=== PATIENT | male | born 1965 | race Caucasian/White ===

== ENCOUNTER 2016-08-19 17:29 | Emergency (ER) | payer MEDICAID, OTHER ==
[2016-08-19 17:47] VITALS: RESP 20; O2SAT 98
[2016-08-19 17:48] VITALS: BMI 27.8
--- NOTE | 2016-08-19 18:39 | C.PDOC ---
History Of Present Illness 51 yr old male presents to the ER with complaints of intermittent anterior posterior right knee for the past few months. Patient states the pain worsen for the past 3 days after slipping on some ice. Reports has tried some Advil for the pain with minimal relief. Patient denies fall, trauma, chest pain, SOB, nausea, vomiting, back pain, leg pain, weakness or numbness. Time Seen by Provider: 08/19/16 17:57 Chief Complaint (Nursing): Lower Extremity Problem/Injury History Per: Patient History/Exam Limitations: no limitations Onset/Duration Of Symptoms: Intermittent Episodes (months), Worse Since (3 days) Past Medical History Reviewed: Historical Data, Nursing Documentation, Vital Signs Vital Signs: Last Vital Signs Temp 98.8 F 08/19/16 18:49 Pulse 91 H 08/19/16 18:49 Resp 20 08/19/16 18:49 BP 138/80 08/19/16 18:49 Pulse Ox 98 08/19/16 18:49 - Medical History PMH: Deep Vein Thrombosis, Hypercholesterolemia Family History: States: No Known Family Hx - Social History Hx Tobacco Use: No Hx Alcohol Use: No Hx Substance Use: No - Immunization History Hx Tetanus Toxoid Vaccination: No Hx Influenza Vaccination: No Hx Pneumococcal Vaccination: No Review Of Systems Except As Marked, All Systems Reviewed And Found Negative. Cardiovascular: Negative for: Chest Pain Respiratory: Negative for: Shortness of Breath Gastrointestinal: Negative for: Nausea, Vomiting Musculoskeletal: Positive for: Other ((+) Anterior, posterior right knee pain ) . Negative for: Back Pain, Leg Pain Neurological: Negative for: Weakness, Numbness Physical Exam - Physical Exam Appears: Non-toxic, No Acute Distress Skin: Warm, Dry, No Rash Head: Atraumatic, Normacephalic Eye(s): bilateral: Normal Inspection, PERRL Oral Mucosa: Moist Neck: Normal, Normal ROM, Supple Chest: Symmetrical, No Tenderness Cardiovascular: Rhythm Regular, No Murmur Respiratory: Normal Breath Sounds, No Rales, No Rhonchi, No Stridor, No Wheezing Extremity: No Calf Tenderness, No Deformity, No Swelling, Other ((+) Mild popliteal fossa. (-) Negative tomasa signs.) Pulses: Left Dorsalis Pedis: Normal, Right Dorsalis Pedis: Normal Neurological/Psych: Oriented x3, Normal Speech, Normal Motor, Normal Sensation Gait: Steady ED Course And Treatment O2 Sat by Pulse Oximetry: 98 Medical Decision Making Medical Decision Making: PLAN: * Toradol IM 737 pt reports feeling much better. will d/c home. 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 - Scribe Statement The provider has reviewed the documentation as recorded by the Scribe Eneida Rizzo All medical record entries made by the Anoopibharitha were at my direction and personally dictated by me. I have reviewed the chart and agree that the record accurately reflects my personal performance of the history, physical exam, medical decision making, and the department course for this patient. I have also personally directed, reviewed, and agree with the discharge instructions and disposition.
[2016-08-19 18:54] VITALS: BP 138/80; PULSE 91; TEMP 98.8
== END 2016-08-19 19:47 | disposition home or self-care (01) ==
LOC: C.ER 17:29
DX: M25.561 Pain in right knee (principal)
CPT/HCPCS: 96372; 99284; J1885

== ENCOUNTER 2017-03-09 17:33 | Emergency (ER) | payer SELFPAY ==
[2017-03-09 17:34] VITALS: BMI 27.8
[2017-03-09 17:43] VITALS: BP 138/87; PULSE 93; RESP 18; TEMP 98.4; O2SAT 100
--- NOTE | 2017-03-09 18:15 | C.PDOC ---
History Of Present Illness Patient presents to ED c/o productive cough, nasal congestion, body aches, subjective fever, and sore throat since last night. (+) itchy tearing eyes. He denies any chest pain, has no SOB, no abdominal pain, no nausea/vomiting/ diarrhea, no dysuria/hematuria. Time Seen by Provider: 03/09/17 17:51 Chief Complaint (Nursing): Cough, Cold, Congestion History Per: Patient History/Exam Limitations: no limitations Onset/Duration Of Symptoms: Days (yesterday) Current Symptoms Are (Timing): Still Present Past Medical History Vital Signs: Last Vital Signs Temp 98.4 F 03/09/17 17:43 Pulse 93 H 03/09/17 17:43 Resp 18 03/09/17 17:43 BP 138/87 03/09/17 17:43 Pulse Ox 100 03/09/17 18:15 - Medical History PMH: Deep Vein Thrombosis, Hypercholesterolemia Family History: States: Unknown Family Hx - Social History Hx Tobacco Use: No Hx Alcohol Use: No Hx Substance Use: No - Immunization History Hx Tetanus Toxoid Vaccination: No Hx Influenza Vaccination: No Hx Pneumococcal Vaccination: No Review Of Systems Constitutional: Negative for: Fever ENT: Positive for: Nose Congestion Cardiovascular: Negative for: Chest Pain Respiratory: Negative for: Shortness of Breath Gastrointestinal: Negative for: Abdominal Pain Physical Exam - Physical Exam Appears: Well, Non-toxic, No Acute Distress Skin: Normal Color, Warm, Dry Head: Atraumatic, Normacephalic Eye(s): bilateral: PERRL, EOMI, Other ((+) tearing ) Ear(s): Bilateral: Normal Nose: Other ((+) congestion) Oral Mucosa: Moist Throat: Erythema, No Exudate, No Drooling Neck: Normal, Normal ROM, Supple Chest: Symmetrical Cardiovascular: Rhythm Regular Respiratory: Normal Breath Sounds Gastrointestinal/Abdominal: Normal Exam, Soft, No Tenderness Back: Normal Inspection Extremity: Normal ROM ED Course And Treatment O2 Sat by Pulse Oximetry: 100 Disposition - Disposition Disposition: HOME/ ROUTINE Disposition Time: 18:13 Condition: STABLE Additional Instructions: Follow up with your primary medical doctor or clinic in 2-5 days for further evaluation. Take medications as prescribed. Return to the emergency department at any time if symptoms persist or worsen. Prescriptions: Azithromycin [Zithromax] 250 mg PO DAILY #6 tab Guaifen/Dextromethorphan/PE [Mucinex Fast-Max Congest-Cough] 1 each PO Q6 #20 tablet Instructions: Upper Respiratory Infection (ED) Forms: [facility] [facility] (Latvian) - Clinical Impression Clinical Impression: Upper respiratory infection, Bronchitis
== END 2017-03-09 18:25 | disposition home or self-care (01) ==
LOC: C.ER 17:33
DX: J06.9 Acute upper respiratory infection, unspecified (principal); J40 Bronchitis, not specified as acute or chronic

== ENCOUNTER 2018-01-17 08:47 | Emergency (ER) | payer OTHER ==
[2018-01-17 08:47] VITALS: BMI 27.8
[2018-01-17 09:10] VITALS: BP 126/73; PULSE 78; RESP 18; TEMP 98; O2SAT 99
[2018-01-17] MEDS ORDERED: Alum-Mag Hydrox-Simethicone Susp (30 mL) PO STA (09:13)
--- NOTE | 2018-01-17 09:16 | C.PDOC ---
History Of Present Illness 52yo male, comes to ER with vague complaints, reporting occasional headache and abdominal pain. Patient states currently he is asymptomatic and has not had any issues today. He states he has a healthy diet and occasionally eats fast food. Otherwise, no fever, chills, chest pain, back pain. Time Seen by Provider: 01/17/18 09:06 Chief Complaint (Nursing): GI Problem History Per: Patient History/Exam Limitations: no limitations Current Symptoms Are (Timing): Still Present Past Medical History Reviewed: Historical Data, Nursing Documentation, Vital Signs Vital Signs: Last Vital Signs Temp 98 F 01/17/18 08:58 Pulse 78 01/17/18 08:58 Resp 18 01/17/18 08:58 BP 126/73 01/17/18 08:58 Pulse Ox 99 01/17/18 09:15 - Medical History PMH: Deep Vein Thrombosis, Hypercholesterolemia Surgical History: No Surg Hx Family History: States: Unknown Family Hx - Social History Hx Tobacco Use: No Hx Alcohol Use: Yes Hx Substance Use: No - Immunization History Hx Tetanus Toxoid Vaccination: No Hx Influenza Vaccination: No Hx Pneumococcal Vaccination: No Review Of Systems Except As Marked, All Systems Reviewed And Found Negative. Constitutional: Negative for: Fever, Chills Gastrointestinal: Positive for: Abdominal Pain (vague complaitns; none at present) Neurological: Positive for: Headache (vague complaint; none at present) Physical Exam - Physical Exam Appears: Non-toxic, No Acute Distress Skin: Normal Color Head: Atraumatic, Normacephalic Eye(s): bilateral: Normal Inspection Neck: Normal ROM, Supple Chest: Symmetrical Cardiovascular: Rhythm Regular Respiratory: Normal Breath Sounds Gastrointestinal/Abdominal: Normal Exam, Soft, No Tenderness, No Guarding, No Rebound Back: Normal Inspection Neurological/Psych: Oriented x3 ED Course And Treatment O2 Sat by Pulse Oximetry: 99 (RA) Pulse Ox Interpretation: Normal Medical Decision Making Medical Decision Making: many vague complaints none now, normal exam diet and exercise reviewed no w/u indicated at this time. educated to avoid Fast Food. Disposition Doctor Will See Patient In The: Office Counseled Patient/Family Regarding: Studies Performed, Diagnosis - Disposition Referrals: [facility] [Outside] [facility] [Outside] [place] [facility] [Outside] Disposition: HOME/ ROUTINE Disposition Time: 09:14 Condition: GOOD Additional Instructions: drink plenty of water during the Summer work days Avoid Fast Food- may cause constipation and indigestion Maalox 30 cc's (one tablespoon) 3-4x/day as needed for mild indigestion. Forms: General Discharge Instructions, [facility] (Lithuanian) - Clinical Impression Clinical Impression: Medical assessment - Scribe Statement The provider has reviewed the documentation as recorded by the Anoopibharitha Valdez Provider Attestation: All medical record entries made by the Anoopibharitha were at my direction and personally dictated by me. I have reviewed the chart and agree that the record accurately reflects my personal performance of the history, physical exam, medical decision making, and the department course for this patient. I have also personally directed, reviewed, and agree with the discharge instructions and disposition.
[2018-01-17] MEDS ORDERED: Aluminum Hydroxide/Magnesium Hydroxide Susp (30 mL) ONE (09:21)
== END 2018-01-17 09:25 | disposition home or self-care (01) ==
LOC: C.ER 08:47
DX: Z04.8 Encounter for examination and observation for other specified reasons (principal)

== ENCOUNTER 2018-01-21 10:31 | Emergency (ER) | payer OTHER ==
[2018-01-21 10:35] VITALS: BMI 30.7
[2018-01-21 10:36] VITALS: BP 113/78; PULSE 86; O2SAT 98
[2018-01-21 10:38] VITALS: RESP 16; TEMP 98
[2018-01-21] MEDS ORDERED: Acetaminophen-Codeine 300/30 mg Tab PO STA (11:24)
[2018-01-21] MEDS ORDERED: Acetaminophen-Codeine 300/30 mg Tab PO ONE (11:36)
--- NOTE | 2018-01-21 11:44 | C.PDOC ---
History Of Present Illness 52 year old male presents to the emergency department with complaints of swelling to this right inner cheek since yesterday after eating potato chips. Patient states the swelling is painful. Otherwise he denies any allergies, fever , chills, nausea, or vomiting. Time Seen by Provider: 01/21/18 10:54 Chief Complaint (Nursing): Dental Pain History Per: Patient History/Exam Limitations: no limitations Onset/Duration Of Symptoms: Days Current Symptoms Are (Timing): Still Present Past Medical History Reviewed: Historical Data, Nursing Documentation, Vital Signs Vital Signs: Last Vital Signs Temp 98 F 01/21/18 10:36 Pulse 86 01/21/18 10:36 Resp 16 01/21/18 10:36 BP 113/78 01/21/18 10:36 Pulse Ox 98 01/21/18 11:47 - Medical History PMH: Deep Vein Thrombosis, Hypercholesterolemia Family History: States: No Known Family Hx - Social History Hx Tobacco Use: No Hx Alcohol Use: No Hx Substance Use: No - Immunization History Hx Tetanus Toxoid Vaccination: No Hx Influenza Vaccination: No Hx Pneumococcal Vaccination: No Review Of Systems Except As Marked, All Systems Reviewed And Found Negative. Constitutional: Negative for: Fever, Chills ENT: Positive for: Mouth Swelling (Right inner cheek) Cardiovascular: Negative for: Chest Pain Respiratory: Negative for: Shortness of Breath Gastrointestinal: Negative for: Nausea, Vomiting Neurological: Negative for: Weakness, Numbness Physical Exam - Physical Exam Appears: Non-toxic, No Acute Distress Skin: Warm, Dry, No Rash Head: Atraumatic, Normacephalic Eye(s): bilateral: Normal Inspection Oral Mucosa: Moist Tongue: Normal Appearing Gingiva: Erythema (right lower gum swelling and erythema) Throat: No Erythema, No Exudate Neck: Supple Neurological/Psych: Oriented x3, Normal Speech, Normal Cognition Gait: Steady ED Course And Treatment O2 Sat by Pulse Oximetry: 98 (RA) Pulse Ox Interpretation: Normal Progress Note: Penicillin and Tylenol/codeine administered. Disposition - Disposition Referrals: [facility] [Outside] Disposition: HOME/ ROUTINE Disposition Time: 11:51 Condition: STABLE Additional Instructions: Follow up with Dentist tomorrow. Return to ED if feel worse. 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 - Scribe Statement The provider has reviewed the documentation as recorded by the Scribe All medical record entries made by the Scribe were at my direction and personally dictated by me. I have reviewed the chart and agree that the record accurately reflects my personal performance of the history, physical exam, medical decision making, and the department course for this patient. I have also personally directed, reviewed, and agree with the discharge instructions and disposition.
== END 2018-01-21 11:56 | disposition home or self-care (01) ==
LOC: C.ER 10:31
DX: K05.10 Chronic gingivitis, plaque induced (principal)

== ENCOUNTER 2018-09-29 19:41 | Emergency (ER) | payer SELFPAY ==
[2018-09-29 19:42] VITALS: BMI 30.7
[2018-09-29 20:22] VITALS: RESP 18
--- NOTE | 2018-09-29 21:14 | C.PDOC ---
History Of Present Illness 53 y/o male pt with hx of inguinal hernia repair presents to the ER c/o right shoulder pain for x1 day. Associated sx includes pain radiating to the right arm and worse with movement. Pt reports he was pushing a heavy container full of garbage. Pt notes he has difficulty dressing himself. He denies trauma, fall, weakness, numbness or tingling. Pt also notes he has intermittent left hip and left groin pain for x4 days. Time Seen by Provider: 09/29/18 20:29 Chief Complaint (Nursing): Upper Extremity Problem/Injury History Per: Patient History/Exam Limitations: no limitations Onset/Duration Of Symptoms: Days (x1) Current Symptoms Are (Timing): Still Present Past Medical History Reviewed: Historical Data, Nursing Documentation, Vital Signs Vital Signs: Last Vital Signs Temp 98.0 F 09/29/18 20:19 Pulse 72 09/29/18 20:19 Resp 18 09/29/18 20:19 BP 120/76 09/29/18 20:19 Pulse Ox 95 09/29/18 20:19 - Medical History PMH: Deep Vein Thrombosis, Hypercholesterolemia Family History: States: No Known Family Hx - Social History Hx Tobacco Use: No Hx Alcohol Use: No Hx Substance Use: No - Immunization History Hx Tetanus Toxoid Vaccination: No Hx Influenza Vaccination: No Hx Pneumococcal Vaccination: No Review Of Systems Except As Marked, All Systems Reviewed And Found Negative. Musculoskeletal: Positive for: Shoulder Pain (right ), Arm Pain (right; radiating from right shoulder pain ), Other (left hip pain and left groin pain ) Neurological: Negative for: Weakness, Numbness, Other (tingling ) Physical Exam - Physical Exam Appears: Non-toxic, No Acute Distress Skin: Warm, Dry Head: Normacephalic Eye(s): bilateral: Normal Inspection Neck: Normal ROM Gastrointestinal/Abdominal: Soft, No Tenderness, No Distention, No Guarding, No Hernia, Other (faint mid superficial scar ) Male Genital: No Testicular Swelling, No Inguinal Tenderness, No Inguinal Swelling, No Other (buldging; inguinal hernia ) Extremity: Normal ROM (FROM; causes pain ), Tenderness (right anterior shoulder), Capillary Refill (<2 sec ), No Deformity, No Swelling, No Other (tenderness or deformity of the left hip ) Extremity: Bilateral: Atraumatic Neurological/Psych: Oriented x3, Normal Speech, Normal Motor, Normal Sensation Gait: Steady ED Course And Treatment O2 Sat by Pulse Oximetry: 95 (RA) Pulse Ox Interpretation: Normal - Other Rad right shoulder X-Ray: Interpreted by Me, Viewed By Me Interpretation: no fx, no dislocation Progress Note: Plans: -- right shoulder XR. -- ibuprofen Reassessment Condition: Improved Disposition - Disposition Referrals: [facility] [Outside] Disposition: HOME/ ROUTINE Disposition Time: 21:14 Condition: STABLE Additional Instructions: Please follow up with PMD or in clinic Take motrin for pain Avoid heavy lifting Return to ER if severe pain, bulging in your groin that you cant push back in , vomiting, arm or leg weakness or worse Prescriptions: Ibuprofen [Motrin] 600 mg PO Q6H #30 tab Instructions: Shoulder Sprain, Hip Pain (DC) Forms: [employer] (Swiss) - Clinical Impression Clinical Impression: Sprain of right shoulder, Left hip pain - PA / RELEASE MANAGER / Resident Statement MD/ has reviewed & agrees with the documentation as recorded. - Scribe Statement The provider has reviewed the documentation as recorded by the Jovanny Carl Do All medical record entries made by the Scribe were at my direction and personally dictated by me. I have reviewed the chart and agree that the record accurately reflects my personal performance of the history, physical exam, medical decision making, and the department course for this patient. I have also personally directed, reviewed, and agree with the discharge instructions and disposition.
[2018-09-29 21:26] VITALS: BP 124/68; PULSE 68; TEMP 98.3
[2018-09-29 21:55] VITALS: O2SAT 95
--- NOTE | 2018-09-30 17:17 | RAD ---
Date of service: 09/29/2018 PROCEDURE: Radiographs of the Right Shoulder HISTORY: pain, heavy lifting COMPARISON: No prior. TECHNIQUE: 3 views obtained. FINDINGS: BONES: Normal. No fracture. JOINTS: Normal. Glenohumeral and acromioclavicular joints preserved. No osteoarthritis. SOFT TISSUES: Normal. OTHER FINDINGS: None. IMPRESSION: Normal radiographs of the right shoulder.
== END 2018-09-29 21:32 | disposition home or self-care (01) ==
LOC: C.ER 19:41
DX: S43.401A Unspecified sprain of right shoulder joint, initial encounter (principal); X50.9XXA Other and unspecified overexertion or strenuous movements or postures, initial encounter; M25.552 Pain in left hip; E78.00 Pure hypercholesterolemia, unspecified; Z86.718 Personal history of other venous thrombosis and embolism